=== PATIENT | female | born 1995 | race Caucasian/White ===

== ENCOUNTER 2022-01-15 13:30 | Inpatient (IN) ==
[2022-01-15] MEDS ORDERED: BRIDION ONE (13:46)
[2022-01-15] MEDS ORDERED: ZEMURON 100 MG VIAL ONE (13:46)
[2022-01-15] MEDS ORDERED: VERSED ONE (13:46)
[2022-01-15] MEDS ORDERED: FENTANYL VIAL INJ 250 mcg ONE (13:46)
[2022-01-15] MEDS ORDERED: DIPRIVAN VIAL 0 ML ONE (13:46)
[2022-01-15] MEDS ORDERED: ANCEF VIAL 1 GRAM ONE (13:47)
[2022-01-15] MEDS ORDERED: REGLAN INJ 10 MG VIAL ONE (13:48)
[2022-01-15] MEDS ORDERED: LR 1,000 ML IV 1,000 ML IV ONE ×2 (13:48→13:57)
[2022-01-15] MEDS ORDERED: NS 100 ML IV 100 ML ONE (13:48)
[2022-01-15] MEDS ORDERED: PEPCID 20 MG VIAL ONE (13:48)
[2022-01-15] MEDS ORDERED: ZOFRAN INJ 4 MG VIAL ONE ×3 (13:48→16:20)
[2022-01-15] MEDS ORDERED: ANCEF VIAL 1 GRAM IVP ONE (13:49)
[2022-01-15] MEDS ORDERED: D5 1/2 NS 1,000 mL + PITOCIN 20 UNITS/L IV 20 UNITS/1,000 ML BAG IV ONE ×2 (13:57→16:35)
[2022-01-15 14:05] LABS: AMNISURE ROM TEST NO MEMBRANES RUPTURE (NO RUPTURE)
[2022-01-15] MEDS ORDERED: NEO-SYNEPHRINE INJ ONE (14:15)
[2022-01-15] MEDS ORDERED: EPHEDRINE SULFATE INJ ONE (14:15)
[2022-01-15 14:17] LABS: BASOPHILS % (AUTO) 0.4 % (0.2-1.0); EOSINOPHILS % (AUTO) 0.4 % (0.9-2.9); HEMATOCRIT 27.7 % (36.0-47.0); HEMOGLOBIN 9.3 g/dL (12.0-16.0); LYMPHOCYTES # (AUTO) 2.1 X10^3/uL (1.3-2.9); LYMPHOCYTES % (AUTO) 20.3 % (21.0-51.0); MEAN CORPUSCULAR HEMOGLOBIN 25.8 pg (27.0-34.0); MEAN CORPUSCULAR HGB CONC 33.8 g/dL (33.0-35.0); MEAN CORPUSCULAR VOLUME 76.3 fL (80.0-100.0); MEAN PLATELET VOLUME 8.2 fL (7.4-11.0); MONOCYTES # (AUTO) 0.7 x10^3/uL (0.3-0.8); MONOCYTES % (AUTO) 6.7 % (0.0-13.0); NEUTROPHILS # (AUTO) 7.4 x10^3/uL (2.2-4.8); NEUTROPHILS % (AUTO) 72.2 % (42.0-75.0); RED BLOOD COUNT 3.62 X10^6/uL (3.5-5.4); RED CELL DISTRIBUTION WIDTH 16.6 % (11.6-16.5); WHITE BLOOD COUNT 10.2 X10^3/uL (3.6-10.0)
[2022-01-15] MEDS ORDERED: DILAUDID INJ ONE (14:18)
[2022-01-15] MEDS ORDERED: MARCAINE SPINAL ONE (14:20)
[2022-01-15 14:35] LABS: HYPOCHROMASIA SLIGHT; MICROCYTOSIS SLIGHT; PLATELET MORPHOLOGY COMMENT NORMAL (NORMAL)
[2022-01-15 14:41] LABS: BILIRUBIN,URINE NEGATIVE (NEGATIVE); BLOOD/HEMOGLOBIN,URINE NEGATIVE (NEGATIVE); GLUCOSE, URINE NEGATIVE (NEGATIVE); KETONES,URINE NEGATIVE (NEGATIVE); LEUKOCYTE ESTERASE ,URINE NEGATIVE (NEGATIVE); NITRITES,URINE NEGATIVE (NEGATIVE); PROTEIN,URINE NEGATIVE (NEGATIVE); UROBILINOGEN,URINE 1+ (NORMAL)
[2022-01-15 14:45] LABS: BLOOD UREA NITROGEN 10 mg/dL (7-18); CALCIUM 8.6 mg/dL (8.5-10.1); CARBON DIOXIDE 24.8 mmol/L (21-32); CHLORIDE 102 mmol/L (98-107); CREATININE 0.69 mg/dL (0.55-1.02); SODIUM 135 mmol/L (136-145); eGFR NON BLACK RACES > 60 (>60)
[2022-01-15 14:51] LABS: APPEARANCE,URINE CLEAR (CLEAR); BACTERIA,URINE TRACE /HPF (NEGATIVE); COLOR,URINE YELLOW (YELLOW); RBC,URINE 0-2 /HPF (0-3); SQUAMOUS EPITHELIAL CELL,UR RARE /HPF (NEGATIVE)
[2022-01-15] MEDS ORDERED: KETAMINE HCL ONE (14:58)
[2022-01-15] MEDS ORDERED: TORADOL 30 MG VIAL ONE (15:58)
[2022-01-15] MEDS ORDERED: BENADRYL INJ 50 MG VIAL IVP PRN ×2 (16:08→16:38)
[2022-01-15] MEDS ORDERED: BARHEMSYS INJ IVP PRN (16:08)
[2022-01-15] MEDS ORDERED: ZOFRAN INJ 4 MG VIAL IVP PRN ×2 (16:08→16:38)
[2022-01-15] MEDS ORDERED: PHENERGAN INJ 25 MG IM PRN (16:08)
[2022-01-15] MEDS ORDERED: DILAUDID INJ IVP PRN (16:08)
[2022-01-15] MEDS ORDERED: TORADOL 30 MG VIAL IVP PRN (16:38)
[2022-01-15] MEDS ORDERED: REGLAN INJ 10 MG VIAL IVP PRN (16:38)
[2022-01-15] MEDS ORDERED: ADACEL or BOOSTRIX TDaP VACCINE IM ONE (16:38)
[2022-01-15] MEDS ORDERED: MYLICON TAB 80 MG CHEW PO PRN (16:38)
[2022-01-15] MEDS ORDERED: PERCOCET TAB 5/325 MG PO PRN (16:38)
[2022-01-15] MEDS ORDERED: NARCAN INJ IVP PRN (16:38)
[2022-01-15] MEDS ORDERED: D5 1/2 NS 1,000 ML 1,000 ML with PITOCIN 20 UNITS IV SCH ×2 (17:00)
[2022-01-16 05:23] LABS: HEMATOCRIT 27.6 % (36.0-47.0); HEMOGLOBIN 9.1 g/dL (12.0-16.0)
[2022-01-16] MEDS: PERCOCET TAB 5/325 MG PO PRN ×3 (08:19→18:05)
[2022-01-16] MEDS: COLACE CAP 100 MG PO SCH ×2 (08:21→20:36)
[2022-01-16] MEDS: PRENATAL PLUS PO SCH (08:22)
[2022-01-16] MEDS: BACTROBAN TOPICAL OINT TOP SCH ×2 (15:00→21:19)
[2022-01-16] MEDS: FERROUS GLUCONATE PO SCH (17:45)
[2022-01-16] MEDS: MOTRIN TAB 800 MG PO PRN (20:36)
[2022-01-17] MEDS: PERCOCET TAB 5/325 MG PO PRN ×2 (01:44→10:23)
[2022-01-17] MEDS: BACTROBAN TOPICAL OINT TOP SCH (05:47)
[2022-01-17] MEDS: FERROUS GLUCONATE PO SCH (06:01)
[2022-01-17] MEDS: MOTRIN TAB 800 MG PO PRN (07:31)
[2022-01-17 07:39] VITALS: BP 125/74
[2022-01-17] MEDS ORDERED: DEPO-PROVERA CONTRACEPTIVE INJ IM ONE (08:32)
[2022-01-17] MEDS: PRENATAL PLUS PO SCH (09:13)
[2022-01-17] MEDS: COLACE CAP 100 MG PO SCH (09:13)
== END 2022-01-17 11:00 | disposition home or self-care (01) | DRG 787 ==
LOC: ER 13:30 → LD 13:43 → MED/SURG 16:49
PROVIDERS: ADMIT Specialist; ATTEND Specialist
DX: N85.8 Other specified noninflammatory disorders of uterus; F15.90 Other stimulant use, unspecified, uncomplicated; D50.8 Other iron deficiency anemias; O99.013 Anemia complicating pregnancy, third trimester; Z20.822 Contact with and (suspected) exposure to COVID-19; O34.211 Maternal care for low transverse scar from previous cesarean delivery; Z37.0 Single live birth; Z3A.39 39 weeks gestation of pregnancy; F19.90 Other psychoactive substance use, unspecified, uncomplicated; O99.323 Drug use complicating pregnancy, third trimester